=== PATIENT | female | born 1950 | race Caucasian/White ===

== ENCOUNTER → 2025-06-08 | Outpatient (CLI) | payer OTHER ==
[~2025-06-08] MED LIST: IOHEXOL-350 50ML VIAL IV ONE
--- NOTE | 2025-06-09 06:26 | HMCIMG ---
EXAMINATION: ULTRASOUND OF THE ABDOMEN (LIMITED) WITH COLOR DOPPLER. CLINICAL HISTORY: Pain. COMPARISON: None. TECHNIQUE: Real-time grayscale ultrasound images of the abdomen. In addition, color Doppler is medically necessary to perform in order to evaluate vascularity and blood flow. FINDINGS: Liver: Normal in caliber, the right hepatic lobe measures 13.0 cm in the craniocaudal dimension. There is normal echogenicity of the hepatic parenchyma. There is no focal hepatic abnormality or intrahepatic biliary ductal dilatation. There is normal spectral Doppler of the main portal vein. Gallbladder: Within normal limits with normal wall thickness (0.16 cm). No hyperemia or pericholecystic free fluid. There are multiple calculi, the largest measure 1.4 cm. Common bile duct is normal in caliber, measuring 0.20 cm. Pancreas: Normal in caliber and echotexture. No calcification or dilated pancreatic duct. The right kidney is normal in caliber, the right kidney measures 8.0 x 3.7 x 4.2 cm in craniocaudal, AP, and transverse dimensions respectively. There is normal renal cortical thickness, and cortical echogenicity. There is no renal calculus or hydronephrosis. IMPRESSION: Cholelithiasis. No cholecystitis. /[place]
--- NOTE | 2025-06-09 11:18 | HMCIMG ---
EXAM: CT Sinuses with and without Intravenous Contrast. CLINICAL HISTORY: Chronic sinusitis, unspecified TECHNIQUE: Computed tomography images of the maxillofacial sinuses with and without intravenous contrast. Reformatted images were obtained. CONTRAST: None. COMPARISON: None provided. FINDINGS: PARANASAL SINUSES: Left maxillary sinus shows complete opacification with mucosal thickening. No bony erosion or expansion. Left anterior ethmoid air cells and frontal air cells also demonstrate mucosal thickening and opacification. Rest of the paranasal sinuses are clear. 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 Right osteomeatal complex is patent. No Suri cells. No Onodi cells. Cribriform plate is intact, with no high-risk Keros type III configuration. Sphenoid sinus pneumatization is normal. Carotid canal and optic nerve canal are intact without dehiscence. ORBITS: Unremarkable. Lamina papyracea is intact. NASAL CAVITY/SEPTUM: Patent. Middle turbinates appear normal without carol bullosa. Inferior turbinates are normal. BONES: No acute osseous abnormality. SOFT TISSUES: The soft tissues are unremarkable. IMPRESSION: 1. Left maxillary, anterior ethmoid, and frontal sinus opacification with mucosal thickening and left osteomeatal complex obstruction. /[place]
== END | disposition home or self-care (01) ==
LOC: RAH 07:56
PROVIDERS: ATTEND Family Medicine
DX: K80.20 Calculus of gallbladder without cholecystitis without obstruction (principal); J32.2 Chronic ethmoidal sinusitis; J32.1 Chronic frontal sinusitis; J32.0 Chronic maxillary sinusitis; R74.8 Abnormal levels of other serum enzymes
CPT/HCPCS: 70488; 76705; Q9967